=== PATIENT | male | born 1995 | race Asian ===

== ENCOUNTER 2023-03-05 22:04 | Emergency (ER) | payer MEDICAID, OTHER ==
[~2023-03-05] VITALS: Ht 160 cm; Wt 84.0 kg
[2023-03-06] MEDS ORDERED: IOHEXOL 300 MG/ML 100ML BOTTLE IJ ONE (00:41)
[2023-03-06] MEDS ORDERED: HYDROcodone-ACET 10/325MG TAB PO ONE (00:45)
[2023-03-06 01:09] LABS: Basophils # (auto) 0 10 ^3/uL (0-0.2); Basophils % (auto) 0.3 % (0.0-2.0); Eosinophils # (auto) 0.3 10 ^3/uL (0-0.8); Eosinophils % (auto) 2.1 % (0.0-7.0); Hematocrit 42.6 % (41.0-53.0); Hemoglobin 15.1 g/dL (13.5-17.5); Lymphocytes # (auto) 3.9 10 ^3/uL (0.4-5.4); Mean Corpuscular Hemoglobin 29.6 pg (28.0-32.0); Mean Corpuscular Hgb Conc. 35.4 g/dL (32.0-36.0); Mean Corpuscular Volume 83.7 fL (80.0-100.0); Monocytes # (auto) 1.4 10 ^3/uL (0-1.3); Monocytes % (auto) 9.2 % (0.0-12.0); Neutrophils # (auto) 9.4 10 ^3/uL (1.6-8.6); Neutrophils % (auto) 62.4 % (37.0-80.0); Nucleated Red Blood Cells % 0.2 %; Red Blood Cells 5.09 10^6/uL (4.5-5.90); White Blood Cell 15.1 10^3/uL (4.4-10.8)
[2023-03-06 01:49] LABS: Potassium 3.9 mmol/L (3.5-5.1)
[2023-03-06 02:11] VITALS: BP 132/74
[2023-03-06 02:20] LABS: Albumin 3.7 g/dL (3.4-5.0); BUN/Creatinine Ratio 19.3 (10.0-20.0); Bilirubin, Total 0.4 mg/dL (0.2-1.0); Total Protein 8.2 g/dL (6.4-8.2)
[2023-03-06 02:57] LABS: Uric Acid 8.8 mg/dL (3.5-7.2)
[2023-03-06] MEDS ORDERED: KETOROLAC TROMETH 30 MG/ML 1ML VIAL IM ONE (03:15)
[2023-03-06] MEDS ORDERED: INDO50CA82 PO (03:15)
[2023-03-06] MEDS ORDERED: methylPREDNISolone SOD SUCC 125 MG/2 ML VL IM ONE (03:15)
[2023-03-06] MEDS ORDERED: CEPH-510 PO (03:15)
[2023-03-06] MEDS ORDERED: COLC1TAB3 PO (03:15)
== END 2023-03-06 03:27 | disposition home or self-care (01) ==
LOC: ER 22:04
DX: M10.9 Gout, unspecified (principal); D72.829 Elevated white blood cell count, unspecified
CPT/HCPCS: 36415; 73630; 80053; 84550; 85025; 96372; 99284; J1885; J2930

== ENCOUNTER 2023-04-16 22:34 | Emergency (ER) | payer OTHER ==
[~2023-04-16] VITALS: Ht 160 cm; Wt 90.0 kg
[~2023-04-16 22:34] MED LIST: CEPH-510 PO; COLC1TAB3 PO; INDO50CA82 PO
[2023-04-17] MEDS ORDERED: INDO50CA82 PO (03:40)
[2023-04-17] MEDS ORDERED: COLC1TAB3 PO (03:40)
[2023-04-17] MEDS ORDERED: methylPREDNISolone SOD SUCC 125 MG/2 ML VL IM ONE (03:45)
[2023-04-17] MEDS ORDERED: KETOROLAC TROMETH 30 MG/ML 1ML VIAL IM ONE (03:45)
[2023-04-17 04:10] VITALS: BP 129/86
== END 2023-04-17 04:13 | disposition home or self-care (01) ==
LOC: ER 22:34
DX: M10.9 Gout, unspecified (principal); M79.675 Pain in left toe(s)
CPT/HCPCS: 96372; 99284; J1885; J2930